=== PATIENT | female | born 1995 | race Two or more races ===

== ENCOUNTER 2017-03-16 04:12 | Emergency (ER) | payer OTHER ==
--- NOTE | 2017-03-16 04:34 | ER Document Report ---
ED General - General Chief Complaint: Altered Mental Status Stated Complaint: UNRESPONSIVE Time Seen by Provider: 03/16/17 04:31 Mode of Arrival: Medic Information source: Relative - sister Notes: 22 yo female visiting her sister who is a AERONAUTICAL ENGINEERING TECHNOLOGIST at [employer] (Tali Friend- [phone]) from [facility], she lives her parents in [place]. Kay has been with boyfriend for 3 days in [place] prior to being picked up in [place] thursday at midnight. She was dropped off by her parents, was completely normal all thursday. Parents said she was fine during the drive. She was at her sisters house at 7 pm with her brother in law. Went to sleep at 10 pm in guest room. Pt texted her sister at 2:30 am and it didn't make much sense. States she woke and was dizzy, vomited once and had diarrhea, is c/o headache now. States she did not hit her head. The nurse says that she told her that she drank a few beers. Hx seizure as a child only (no reason found ) Brother in law heard a snoring sound and found her in the bathroom face down unconscious. Vitals stable. - Related Data Allergies/Adverse Reactions: No Known Allergies Allergy (Unverified 03/16/17 07:41) Past Medical History - General Information source: Patient - Social History Smoking Status: Never Smoker Frequency of alcohol use: Occasional Drug Abuse: None Lives with: Parents Family History: Reviewed & Not Pertinent - Medical History Medical History: Negative Surgical Hx: Negative Review of Systems - Review of Systems Constitutional: See HPI EENT: No symptoms reported Cardiovascular: No symptoms reported Respiratory: No symptoms reported Gastrointestinal: See HPI Genitourinary: No symptoms reported Female Genitourinary: No symptoms reported Musculoskeletal: No symptoms reported Skin: No symptoms reported Hematologic/Lymphatic: No symptoms reported Neurological/Psychological: See HPI Physical Exam - Vital signs Vitals: Temp Resp BP Pulse Ox 97.2 F 16 119/76 98 03/16/17 04:26 03/16/17 04:26 03/16/17 04:26 03/16/17 04:26 Interpretation: Normal - Notes Notes: drowsy - General General appearance: Appears well, Alert - HEENT Head: Normocephalic, Atraumatic Eyes: Normal Conjunctiva: Normal Extraocular movements intact: Yes Pupils: PERRL Mucous membranes: Dry Pharynx: Normal Neck: Supple. No: Lymphadenopathy - Respiratory Respiratory status: No respiratory distress Chest status: Nontender Breath sounds: Normal Chest palpation: Normal - Cardiovascular Rhythm: Regular Heart sounds: Normal auscultation Murmur: No - Abdominal Inspection: Normal Distension: No distension Bowel sounds: Normal Tenderness: Nontender. No: Tender Organomegaly: No organomegaly - Back Back: Normal, Nontender - Extremities General upper extremity: Normal inspection, Nontender, Normal color, Normal ROM , Normal temperature General lower extremity: Normal inspection, Nontender, Normal color, Normal ROM , Normal temperature, Normal weight bearing. No: Zuleima's sign - Neurological Neuro grossly intact: Yes Cognition: Normal Orientation: AAOx4 [place] Coma Scale Eye Opening: Spontaneous [place] Coma Scale Verbal: Oriented [place] Coma Scale Motor: Obeys Commands Danita Coma Scale Total: 15 Speech: Normal Motor strength normal: LUE, RUE, LLE, RLE Sensory: Normal - Psychological Associated symptoms: Psychomotor depression - Skin Skin Temperature: Warm Skin Moisture: Dry Skin Color: Normal Course - Re-evaluation Re-evalutation: 03/16/17 05:42 vomit during blood draw. Zofran given. Pt going to CT 03/16/17 06:16 etoh negative. she is more alert, sister will escort to bathroom for the UA. 03/16/17 06:[address] negative. 03/16/17 06:47 Woke up she was extremely dizzy and vomited multiple times tried to clean it up off the bathroom she also episode of diarrhea. Does not remember losing consciousness. consult dr. menjivar for dispo, can go home pending urine result. 03/16/17 07:20 Discussed with patient (without her sister in the room) about the lab results and the positive marijuana and she states she smoked a couple weeks ago. - Vital Signs Vital signs: Temp Pulse Resp BP Pulse Ox 98.2 F 77 16 110/65 98 03/16/17 07:41 03/16/17 07:41 03/16/17 07:41 03/16/17 07:41 03/16/17 07:41 - Laboratory Result Diagrams: 03/16/17 05:13 03/16/17 05:13 Laboratory results interpreted by me: 06/02/2503/16/17 03/16/17 05:13 05:13 06:38 WBC 10.7 H RBC 5.68 H MCH 26.3 L RDW 15.4 H Seg Neutrophils % 89.9 H Lymphocytes % 5.4 L Absolute Neutrophils 9.6 H Potassium 5.3 H Glucose 124 H Urine Protein 30 H Salicylates < 1.0 L Acetaminophen < 10 L Discharge - Discharge Clinical Impression: Vomiting and diarrhea, resolved dizziness Syncope Qualifiers: Syncope type: unspecified Qualified Code(s): R55 - Syncope and collapse Condition: Good Disposition: HOME, SELF-CARE Instructions: Nausea or Vomiting, Nonspecific ([facility]), Diarrhea, Nonspecific ([facility] ), Syncopal Episode ([facility]) Additional Instructions: home with sister drink plenty of fluids to er any concerns
[2017-03-16] MEDS ORDERED: NORMAL SALINE 1000 ML 1,000 ML IV ONE (05:00)
[2017-03-16] MEDS ORDERED: ONDANSETRON HCL INJ/PF 4 MG/2 ML SDV IV ONE (05:08)
[2017-03-16] MEDS ORDERED: ONDANSETRON HCL INJ/PF 4 MG/2 ML SDV ONE (05:11)
[2017-03-16 05:28] LABS: ABSOLUTE LYMPHOCYTES (AUTO) 0.6 10^3/uL (0.5-4.7); ABSOLUTE MONOCYTES (AUTO) 0.5 10^3/uL (0.1-1.4); ABSOLUTE NEUT (AUTO) 9.6 10^3/uL (1.7-8.2); BASOPHILS % (AUTO) 0.3 % (0-2); EOSINOPHILS % (AUTO) 0.1 % (0-6); HEMATOCRIT 45.8 % (36.0-47.0); HGB HCT DIFFERENCE -0.8; LYMPHOCYTES % (AUTO) 5.4 % (13-45); MEAN CORPUSCULAR HEMOGLOBIN 26.3 pg (27.0-33.4); MEAN CORPUSCULAR HGB CONC 32.7 g/dL (32.0-36.0); MEAN CORPUSCULAR VOLUME 81 fl (80-97); MONOCYTES % (AUTO) 4.3 % (3-13); RED BLOOD COUNT 5.68 10^6/uL (3.72-5.28); RED CELL DISTRIBUTION WIDTH 15.4 % (11.5-14.0); SEGMENTED NEUTROPHILS % (AUTO) 89.9 % (42-78); WHITE BLOOD COUNT 10.7 10^3/uL (4.0-10.5)
[2017-03-16 05:45] LABS: ALANINE AMINOTRANSFERASE 29 U/L (9-52); ALBUMIN 4.6 g/dL (3.5-5.0); ALKALINE PHOSPHATASE 47 U/L (38-126); ANION GAP 10 (5-19); ASPARTATE AMINO TRANSFERASE 19 U/L (14-36); BILIRUBIN,DIRECT 0.2 mg/dL (0.0-0.4); BILIRUBIN,TOTAL 0.4 mg/dL (0.2-1.3); BLOOD UREA NITROGEN 12 mg/dL (7-20); CALCIUM 9.6 mg/dL (8.4-10.2); CARBON DIOXIDE 23 mmol/L (22-30); CHLORIDE 106 mmol/L (98-107); CREATININE RESULT 0.89 mg/dL (0.52-1.25); GLUCOSE 124 mg/dL (75-110); POTASSIUM 5.3 mmol/L (3.6-5.0); SODIUM 138.9 mmol/L (137-145); TOTAL PROTEIN 7.7 g/dL (6.3-8.2)
[2017-03-16 05:46] LABS: ALCOHOL < 10 mg/dL (NONE DETECTED)
--- NOTE | 2017-03-16 06:28 | RADIOLOGY REPORT (SQ) ---
EXAM DESCRIPTION: CT HEAD WITHOUT COMPLETED DATE/TIME: 03/16/2017 5:54 am REASON FOR STUDY: found unresponsive in bathroom COMPARISON: None. TECHNIQUE: Axial images acquired through the brain without intravenous contrast. Images reviewed wi th bone, brain and subdural windows. Images stored on PACS. All CT scanners at this facility use dose modulation, iterative reconstruction, and/or weight based d osing when appropriate to reduce radiation dose to as low as reasonably achievable (ALARA). [facility]: Dose Right [facility]: CareDose [facility]: Dose Right [facility]: Teradose 4D [facility]: AmberWave RADIATION DOSE: 64.61 mGy. LIMITATIONS: None. FINDINGS: VENTRICLES: Normal size and contour. CEREBRUM: No masses. No hemorrhage. No midline shift. Normal siddiqui/white matter differentiation. N o evidence for acute infarction. CEREBELLUM: No masses. No hemorrhage. No alteration of density. No evidence for acute infarction. EXTRAAXIAL SPACES: No fluid collections. No masses. ORBITS AND GLOBE: No intra- or extraconal masses. Normal contour of globe without masses. CALVARIUM: No fracture. PARANASAL SINUSES: No fluid or mucosal thickening. 2.8 cm right maxillary retention cyst -mucocele. SOFT TISSUES: No mass or hematoma. OTHER: No other significant finding. IMPRESSION: No acute findings. TECHNICAL DOCUMENTATION: JOB ID: [id number] Quality ID # [id number]: Final reports with documentation of one or more dose reduction techniques (e.g., Au tomated exposure control, adjustment of the mA and/or kV according to patient size, use of iterative reconstruction technique) 2010 [employer]- All Rights Reserved
[2017-03-16 07:14] LABS: URINE BARBITURATES SCREEN NEGATIVE; URINE METHADONE SCREEN NEGATIVE; URINE OPIATES LOW NEGATIVE; URINE PHENCYCLIDINE SCREEN NEGATIVE
[2017-03-16 07:17] LABS: APPEARANCE,URINE CLEAR; BILIRUBIN,URINE NEGATIVE (NEGATIVE); GLUCOSE, URINE NEGATIVE (NEGATIVE); KETONES,URINE NEGATIVE (NEGATIVE); LEUKOCYTE ESTERASE,URINE NEGATIVE (NEGATIVE); NITRITE,URINE NEGATIVE (NEGATIVE); PROTEIN,URINE 30 mg/dL (NEGATIVE); URINE SPECIFIC GRAVITY 1.012; UROBILINOGEN,URINE NEGATIVE mg/dL (<2.0)
[2017-03-16 07:42] VITALS: BP 110/65
--- NOTE | 2017-03-16 14:34 | EKG REPORT ---
SEVERITY:- NORMAL ECG - SINUS RHYTHM : Confirmed by: Denise Casanova 16-Mar-2017 14:33:00
== END 2017-03-16 07:41 | disposition home or self-care (01) ==
LOC: ER 04:12
DX: R55 Syncope and collapse (principal); R19.7 Diarrhea, unspecified; R11.10 Vomiting, unspecified; R51 Headache
CPT/HCPCS: 93005; 99285; 96374; 36415; 80307 ×4; 84703; 85025; 80053; 81001; 70450; 93010; J2405; J7030